=== PATIENT | male | born 1970 | race Caucasian/White ===

== ENCOUNTER → 2020-07-16 | Outpatient (CLI) | payer BC ==
[~2020-07-16] MED LIST: 24HR ALLERGY REL5 MG PO; ACETAMINOPHEN-1 EAC1 PO; ALDACTONE 25MG25 MG PO; CO Q-10200 MG PO; COLCHICINE 0.60.6 MG PO; ECOTRIN81 MG PO; IMDUR ER TAB 3030 MG PO; LEVOFLOXACIN250 MG PO; NITROSTAT0.4 MG PO; SERTRALINE HCL25 MG PO; SIMVASTATIN20 MG PO; SYNTHROID100 MCG PO; TOPROL XL25 MG PO; VITAMIN B-121000 MCG PO; VITAMIN D3 PO; VOLTAREN EC 5050 MG PO; ZESTRIL2.5 MG PO; ZYLOPRIM 100 M100 MG PO
== END ==
LOC: US 09:00
DX: R79.89 Other specified abnormal findings of blood chemistry (principal); K76.0 Fatty (change of) liver, not elsewhere classified
CPT/HCPCS: 76705

== ENCOUNTER → 2020-08-06 | Outpatient (CLI) | payer BC | LOC: EXRD 15:30 | DX: R06.02 Shortness of breath (principal) | CPT/HCPCS: 71046 ==

== ENCOUNTER → 2020-09-11 | Outpatient (CLI) | payer BC | LOC: HEART 5 08:30 | DX: I42.9 Cardiomyopathy, unspecified (principal); I08.2 Rheumatic disorders of both aortic and tricuspid valves; I50.9 Heart failure, unspecified; R42 Dizziness and giddiness; R06.02 Shortness of breath | CPT/HCPCS: 93306 ==

== ENCOUNTER → 2021-10-22 | Outpatient (CLI) | payer BC ==
[2021-10-22 17:55] LABS: BUN/CREATININE RATIO 17 (0-10)
== END ==
LOC: LAB 17:12
PROVIDERS: Physician Assistant
DX: I50.22 Chronic systolic (congestive) heart failure (principal); I42.0 Dilated cardiomyopathy; U07.1 COVID-19; E78.5 Hyperlipidemia, unspecified; R00.2 Palpitations; I27.20 Pulmonary hypertension, unspecified; I49.3 Ventricular premature depolarization; R06.02 Shortness of breath
CPT/HCPCS: 36415; 80048; 83880

== ENCOUNTER → 2021-10-31 | Outpatient (CLI) | payer BC | LOC: HEART 5 10-28 09:00 | DX: I50.22 Chronic systolic (congestive) heart failure (principal); R06.02 Shortness of breath; I51.7 Cardiomegaly; Z95.0 Presence of cardiac pacemaker | CPT/HCPCS: 93306 ==

== ENCOUNTER → 2021-11-07 | Outpatient (CLI) | payer BC | LOC: HEART 5 09:55 | DX: R06.02 Shortness of breath (principal) | CPT/HCPCS: 94010 ==